=== PATIENT | male | born 1940 | race Caucasian/White ===

== ENCOUNTER 2018-06-03 15:01 | Emergency (ER) | payer MEDICARE, BC ==
[2018-06-03] MEDS ORDERED: Sodium Chloride 0.9% 10 ML Syringe FLUSH PRN (15:18)
[2018-06-03] MEDS ORDERED: Sodium Chloride 0.9% 1,000 ML IV SCH (15:30)
--- NOTE | 2018-06-03 15:34 | EDM.PDOC ---
ED HPI GENERAL MEDICAL PROBLEM - General Chief Complaint: Neuro Symptoms/Deficits Stated Complaint: RIGHT ARM IS NUMB Time Seen by Provider: 06/03/18 15:09 Source of Information: Reports: Patient, Family (spouse), RN Notes Reviewed - History of Present Illness INITIAL COMMENTS - FREE TEXT/NARRATIVE: 78-year-old male has been sent here from [facility] having suffered TIA about 30-40 minutes ago. This was called as a stroke alert on patient arrival. I did see patient within several minutes of arrival once the stroke alert was called. He was at [facility] getting a preop for upcoming cataract surgery when he had sudden onset of expressive aphasia. His states that his blood pressure taken just a short time before that was in the 120 range. He had total inability to speak for about 3 or 4 minutes and than this started to come back quite quickly. On arrival here to the ED his speech is clear, easy to understand and appropriate. His states that he also did have what sounds like moderate weakness of the right upper and right lower extremities that also returned back towards normal very quickly. He continues to have numbness of the right hand and arm and also numbness of the right lower extremity that is somewhat more than baseline. He always does have some mild numbness of the right hand and arm that has never gone away status post "stroke about 3 years ago." He has been having no chest pain or difficulty breathing. He does completely remember this episode. He did not lose consciousness. He denies headache, nausea or unusual dizziness at this time. - Related Data Allergies Allergy/AdvReac Type Severity Reaction Status Date / Time No Known Allergies Allergy Verified 04/15/15 00:13 Home Meds: Home Meds Aspirin [Halfprin] 81 mg PO DAILY 04/15/15 [History] Cholecalciferol (Vitamin D3) [Vitamin D3] 1,000 units PO DAILY 04/15/15 [History ] Clopidogrel [Plavix] 75 mg PO DAILY 04/15/15 [History] Losartan [Cozaar] 50 mg PO DAILY 04/15/15 [History] Metoprolol Succinate 25 mg PO DAILY 04/15/15 [History] [place]-3 Fatty Acids [[place]-3] 1,000 mg PO DAILY 04/15/15 [History] Pantoprazole [Protonix] 40 mg PO DAILY 04/15/15 [History] Vit A/Vit C/Vit E/Zinc/Copper [Icaps Areds Formula] 1 tab PO BID 04/15/15 [ History] atorvaSTATin [Lipitor] 80 mg PO DAILY 04/15/15 [History] metFORMIN [Glucophage] 500 mg PO DAILY 04/15/15 [History] Past Medical History HEENT History: Reports: Cataract, Impaired Vision, Macular Degeneration Cardiovascular History: Reports: High Cholesterol, Hypertension, [place] Respiratory History: Reports: COPD Gastrointestinal History: Reports: Chronic Constipation, Chronic Diarrhea, GERD , Hemorrhoids Neurological History: Reports: CVA, TIA, Other (See Below) Other Neuro History: 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; 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 Psychiatric History: Reports: Anxiety Endocrine/Metabolic History: Reports: Diabetes, Type II, Osteopenia - Past Surgical History Male Surgical History: Reports: Other (See Below) Other Male Surgeries/Procedures: prostate cancer 2006 with seed implants Musculoskeletal Surgical History: Reports: Other (See Below) Other Musculoskeletal Surgeries/Procedures:: hip fracture with pins and screws to the right hip Social & Family History - Tobacco Use Smoking Status *Q: Former Smoker Used Tobacco, but Quit: Yes Month/Year Tobacco Last Used: 2010 - Caffeine Use Caffeine Use: Reports: Coffee, Soda - Recreational Drug Use Recreational Drug Use: No ED ROS GENERAL - Review of Systems Review Of Systems: See Below Constitutional: Denies: Fever, Chills, Diaphoresis HEENT: Denies: Throat Pain Respiratory: Denies: Shortness of Breath, Pleuritic Chest Pain Cardiovascular: Denies: Chest Pain GI/Abdominal: Denies: Abdominal Pain, Nausea, Vomiting Musculoskeletal: Denies: Neck Pain, Shoulder Pain, Arm Pain Neurological: Reports: Numbness, Tingling ED EXAM, NEURO - Physical Exam Exam: See Below General Appearance: Alert, Anxious (mild) Eye Exam: Bilateral Eye: PERRL Throat/Mouth: Normal Inspection, Normal Oropharynx, Other (no facial droop) Head Exam: Atraumatic. No: Facial Swelling Neck: Supple, Full Range of Motion Respiratory/Chest: No Respiratory Distress, Lungs Clear, Normal Breath Sounds Cardiovascular: Regular Rate, Rhythm GI/Abdominal: Soft, Non-Tender Neurological: Alert, Oriented x 3, Other (no discernable motor weakness at time of initial exam, speech is good, question slightly slow and deliberate but appropriate and spontaneous, finger to nose testing does show very slight ataxia of R hand to nose compared to left. Once again no facial droop. sensation is intact to touch upper and lower extrem. bilat. ) Back Exam: Paraspinal Tenderness Extremities: No: Pedal Edema, Leg Pain Skin Exam: Warm, Dry, Normal Color EKG INTERPRETATION EKG Date: 06/03/18 Rhythm: NSR [place]: Normal P-Wave: Present QRS: Normal ST-T: Normal QT: Normal Course - Vital Signs Last Recorded V/S: Last Vital Signs Temp 97.5 F 06/03/18 15:43 Pulse 62 06/03/18 15:43 Resp 16 06/03/18 15:43 BP 154/86 H 06/03/18 15:43 Pulse Ox 92 L 06/03/18 15:43 - Orders/Labs/Meds Orders: Active Orders 24 hr Category Date Time Status EKG 12 Lead [EKG Documentation Completion] [] STAT Care 06/03/18 15:17 Active POC Glucose [Blood Glucose Check, Bedside] [] ONETIME Care 06/03/18 15:17 Active Peripheral IV Care [] . DIRECTED Care 06/03/18 15:19 Active Peripheral IV Insertion Adult [OM.PC] Stat Oth 06/03/18 15:18 Ordered Labs: Laboratory Tests 06/03/18 06/03/18 06/03/18 Range/Units 15:09 15:10 15:10 WBC 11.02 H (4.23-9.07) K/mm3 RBC 5.16 (4.63-6.08) M/mm3 Hgb 15.0 (13.7-17.5) gm/L Hct 45.8 (40.1-51.0) % MCV 88.8 (79.0-92.2) fl MCH 29.1 (25.7-32.2) pg MCHC 32.8 (32.2-35.5) g/dl RDW Std Deviation 43.0 (35.1-43.9) fL Plt Count 317 (163-337) K/mm3 MPV 9.0 L (9.4-12.3) fl Neut % (Auto) 62.1 (34.0-67.9) % Lymph % (Auto) 23.3 (21.8-53.1) % [place] % (Auto) 11.1 (5.3-12.2) % Eos % (Auto) 2.7 (0.8-7.0) Baso % (Auto) 0.3 (0.1-1.2) % Neut # (Auto) 6.85 H (1.78-5.38) K/mm3 Lymph # (Auto) 2.57 (1.32-3.57) K/mm3 [place] # (Auto) 1.22 H (0.30-0.82) K/mm3 Eos # (Auto) 0.30 (0.04-0.54) K/mm3 Baso # (Auto) 0.03 (0.01-0.08) K/mm3 Sodium 139 (136-145) mEq/L Potassium 4.6 (3.5-5.1) mEq/L Chloride 103 (98-107) mEq/L Carbon Dioxide 28 (21-32) mEq/L Anion Gap 12.6 (5-15) BUN 23 H (7-18) mg/dL Creatinine 1.5 H (0.7-1.3) mg/dL Est Cr Clr Drug Dosing 41.90 mL/min Estimated GFR (MDRD) 46 (>60) mL/min BUN/Creatinine Ratio 15.3 (14-18) Glucose 104 (83-115) mg/dL POC Glucose 94 (83-110) mg/dL Calcium 9.5 (8.5-10.1) mg/dL Total Bilirubin 0.4 (0.2-1.0) mg/dL AST 14 L (15-37) U/L ALT 19 (16-63) U/L Alkaline Phosphatase 93 (46-116) U/L Total Protein 7.6 (6.4-8.2) g/dl Albumin 3.7 (3.4-5.0) g/dl Globulin 3.9 gm/dL Albumin/Globulin Ratio 1.0 (1-2) Meds: Medications Discontinued Medications Generic Name Dose Route Start Last Admin Trade Name Freq PRN Reason Stop Dose Admin Sodium Chloride 1,000 mls @ 150 mls/hr 06/03/18 15:30 06/03/18 15:42 Normal Saline IV 150 mls/hr ASDIRECTED JESUS Administration Sodium Chloride 10 ml 06/03/18 15:18 09/27/18 15:43 Saline Flush FLUSH 10 ml ASDIRECTED PRN Administration Keep Vein Open - Re-Assessments/Exams Free Text/Narrative Re-Assessment/Exam: 06/03/18 20:15. This was called as a stroke alert. After brief neuro exam patient did go to CT. CT of head was done that shoed old infarcts noted within the posterior left parietal and left frontal regions. 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 Evidence of prior craniotomy. No acute hemorrhage or other acute findings. See radiology report for details. I did discuss with patient and admission to this hospital for continued observation. On further discussion with history of the prior meningioma, prior neurosurgery, his Neurology, Cardiology and other specialists all being at [facility] decision was made to transfer to [facility]. His speech even did become more fluent with time on recheck exam. He continued with very slight paresthesias of the right upper right lower extremity which he states are chronic for him. He and his do believe he is back to baseline status. I did discuss this with Dr. Samuel, Hospitalist insolvency consultant for [facility]. He is being transferred by ground ambulance. Of note patient's states that he has had prior carotid endarterectomy I believe on the left. She states that he did have his carotids looked at about 7 or 8 months ago and they were relatively clear at that time. Departure - Departure Time of Disposition: 20:23 Disposition: Home, Self-Care 01 Condition: Fair Clinical Impression: TIA (transient ischemic attack) - Discharge Information Referrals: Carmen Garcia MD [Primary Care Provider] - Forms: ED Department Discharge - My Orders Last 24 Hours: My Active Orders 06/03/18 15:17 EKG 12 Lead [EKG Documentation Completion] [RC] STAT POC Glucose [Blood Glucose Check, Bedside] [RC] ONETIME 06/03/18 15:18 Peripheral IV Insertion Adult [OM.PC] Stat 06/03/18 15:19 Peripheral IV Care [RC] . DIRECTED - Assessment/Plan Last 24 Hours: My Active Orders 06/03/18 15:17 EKG 12 Lead [EKG Documentation Completion] [RC] STAT POC Glucose [Blood Glucose Check, Bedside] [RC] ONETIME 06/03/18 15:18 Peripheral IV Insertion Adult [OM.PC] Stat 06/03/18 15:19 Peripheral IV Care [RC] . DIRECTED
--- NOTE | 2018-06-03 15:39 | CT ---
Head CT Technique: Multiple axial sections through the brain were obtained. Intravenous contrast was not utilized. Comparison: Prior head CT study of 08/03/11. Findings: Ventricles along with basal cisterns and sulci over the convexities are mildly prominent. Old infarcts are noted within the posterior left parietal and left frontal regions. Diminished density is noted within the periventricular and subcortical white matter compatible with small vessel ischemic demyelination change. 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 No acute intracranial hemorrhage is seen. Atherosclerotic calcification is noted within the carotid siphon and within both vertebral vessels. No midline shift or mass effect is seen. Previous craniotomy is noted. No acute calvarial abnormality is seen. Mild mucosal thickening is incidentally noted within the ethmoid sinuses. Impression: 1. Old infarcts as noted above. Other senescent change. 2. 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 This finding is an interval change from prior head CT. 3. Previous craniotomy. 4. No acute intracranial abnormality is appreciated. Diagnostic code #3
[2018-06-03 15:48] VITALS: BP 154/86
== END 2018-06-03 18:15 | disposition home or self-care (01) ==
LOC: JD.ED 15:01
DX: G45.9 Transient cerebral ischemic attack, unspecified (principal); I10 Essential (primary) hypertension; E78.00 Pure hypercholesterolemia, unspecified; I25.2 Old myocardial infarction; J44.9 Chronic obstructive pulmonary disease, unspecified; Z86.73 Personal history of transient ischemic attack (TIA), and cerebral infarction without residual deficits; Z79.82 Long term (current) use of aspirin; Z79.899 Other long term (current) drug therapy; Z87.891 Personal history of nicotine dependence; Z79.01 Long term (current) use of anticoagulants
CPT/HCPCS: 36415; 70450; 80053; 82962; 85025; 93005; 96360; 96361; 99285; J7040; J7050; 93010; 99284-25

== ENCOUNTER 2024-01-16 20:58 | Emergency (ER) | payer MEDICARE, BC ==
[2024-01-16 21:12] LABS: BASOPHILS PERCENT AUTO 0.2 % (0.0-1.0); EOSINOPHILS ABSOLUTE AUTO 0.1 K/mm3 (0.0-0.4); EOSINOPHILS PERCENT AUTO 1.4 % (0.0-6.0); HEMATOCRIT 46.5 % (42.0-52.0); HEMOGLOBIN 15.1 gm/dl (14.0-18.0); IMMATURE GRAN ABSOLUTE AUTO 0.06 K/mm3 (0.00-0.05); IMMATURE GRAN PERCENT AUTO 0.6 % (0.0-0.4); LYMPHOCYTES ABSOLUTE AUTO 1.7 K/mm3 (1.0-4.8); MEAN CORPUSCULAR HEMOGLOBIN 30.5 pg (28.0-32.0); MEAN CORPUSCULAR HGB CONC 32.5 g/dl (32.0-36.0); MEAN CORPUSCULAR VOLUME 93.9 fl (83.0-99.0); MONOCYTES ABSOLUTE AUTO 0.9 K/mm3 (0.0-0.8); MONOCYTES PERCENT AUTO 9.4 % (0.0-8.0); NEUTROPHILS PERCENT AUTO 71.4 % (41.0-71.0); PLATELET COUNT,PLT 245 K/mm3 (150-400); RED BLOOD CELL COUNT 4.95 M/mm3 (4.52-5.90); WHITE BLOOD CELL COUNT,WBC 9.79 K/mm3 (3.9-11.3)
[2024-01-16] MEDS: Iopamidol 755 Mg/ML 100 ML Bottle IVPUSH ONE (21:22)
[2024-01-16] MEDS: Sodium Chloride 0.9% 10 ML Syringe FLUSH PRN (21:23)
[2024-01-16 21:29] LABS: INR 1.03
[2024-01-16 21:30] LABS: PTT,PARTIAL THROMBOPLSTIN TIME 25.6 SECONDS (21.7-31.4)
[2024-01-16] MEDS ORDERED: Sodium Chloride 0.9% 100 ML IV SCH (21:30)
[2024-01-16 21:35] LABS: A/G RATIO 1.2 (1-2); ALBUMIN 3.6 g/dl (3.4-5.0); ALKALINE PHOSPHATASE 104 U/L (46-116); ASPARTATE AMNIOTRANSFERASE,AST 12 U/L (15-37); BILIRUBIN TOTAL 0.6 mg/dL (0.2-1.0); BLOOD UREA NITROGEN,BUN 21 mg/dL (7-18); BUN/CREATININE RATIO 17.5 (14-18); CALCIUM 9.8 mg/dL (8.5-10.1); CARBON DIOXIDE,CO2 29 mEq/L (21-32); CHLORIDE,CL 104 mEq/L (98-107); CREATININE 1.2 mg/dL (0.7-1.3); ESTIMATED GFR 61 mL/min (>60); GLUCOSE RANDOM 159 mg/dL (70-99); PROTEIN TOTAL,TP 6.6 g/dl (6.4-8.2); SODIUM,NA 139 mEq/L (136-145); TROPONIN I HIGH SENSITIVITY 6 pg/mL (<=76)
[2024-01-16 21:44] LABS: ALANINE AMINOTRANSFERASE,ALT 13 U/L (16-63)
[2024-01-16] MEDS: LORazepam 2 MG/ML SDV IVPUSH ONE (21:56)
[2024-01-17] MEDS: levETIRAcetam 2,000 MG in Sodium Chloride 0.9% 100 ML IV ONE (01:09)
[2024-01-17 02:45] VITALS: BP 128/65; PULSE 49
== END 2024-01-17 02:53 | disposition home or self-care (01) ==
LOC: JD.ED 20:58
DX: G40.909 Epilepsy, unspecified, not intractable, without status epilepticus (principal); G24.9 Dystonia, unspecified; I10 Essential (primary) hypertension; E78.00 Pure hypercholesterolemia, unspecified; I25.2 Old myocardial infarction; J44.9 Chronic obstructive pulmonary disease, unspecified; E11.9 Type 2 diabetes mellitus without complications; Z86.73 Personal history of transient ischemic attack (TIA), and cerebral infarction without residual deficits; Z79.82 Long term (current) use of aspirin; Z79.899 Other long term (current) drug therapy; Z88.5 Allergy status to narcotic agent; Z88.8 Allergy status to other drugs, medicaments and biological substances
CPT/HCPCS: 36415; 70450; 70496; 70498; 71045; 80053; 84484; 85025; 85610; 85730; 93005; 96365; 96375; 99285; J1953; J2060; J3490; Q9967; 93010; 99284